=== PATIENT | female | born 1970 | race Caucasian/White ===

== ENCOUNTER → 2017-04-25 | Outpatient (CLI) | payer BC ==
[~2017-04-25] MED LIST: IBUP-1459 PO; PRENTAB26 PO
--- NOTE | 2017-04-26 13:52 | MAMMOGRAPHY REPORT ---
BILATERAL DIGITAL SCREENING MAMMOGRAM TOMOSYNTHESIS WITH CAD: 04/25/2017 CLINICAL HISTORY: Routine screening. Patient has no complaints. TECHNIQUE: Breast tomosynthesis in addition to standard 2D mammography was performed. Current study was also evaluated with a Computer Aided Detection (CAD) system. COMPARISON: Comparison is made to exams dated: 01/21/2013 mammogram, 08/07/2011 mammogram, 07/13/2010 m ammogram, and 09/26/2002 mammogram - [facility]. BREAST COMPOSITION: The tissue of both breasts is heterogeneously dense, which may obscure small mas ses. FINDINGS: No suspicious spiculated or irregular mass, architectural distortion or cluster of suspici ous microcalcifications is seen. There are multiple bilateral circumscribed subcentimeter masses sca ttered in the breasts, the circumscribed borders are best appreciated on the tomosynthesis images. T his is a typically benign mammographic pattern. IMPRESSION: ACR BI-RADS CATEGORY 1: NEGATIVE There is no mammographic evidence of malignancy. A 1 year screening mammogram is recommended. The pa tient will receive written notification of the results. Approximately 10% of breast cancers are not detected with mammography. A negative mammographic report should not delay biopsy if a clinically suggestive mass is present. Siobhan Guo M.D. ay/:04/25/2017 15:45:46 Customer Service Technician: Catrina SNYDER(Shara)(M), [facility] letter sent: Normal 1/2 BI-RADS Code: ACR BI-RADS Category 1: Negative
== END | disposition home or self-care (01) ==
LOC: C.MAMM 15:02
PROVIDERS: ATTEND Nurse Practitioner Family
DX: Z12.31 Encounter for screening mammogram for malignant neoplasm of breast (principal)

== ENCOUNTER 2017-05-10 23:12 | Emergency (ER) | payer BC ==
[~2017-05-10] VITALS: Ht 162.6 cm; Wt 77.9 kg
[2017-05-10 23:17] VITALS: TEMP 36.9; Ht 162.6 cm; Wt 77.9 kg
[2017-05-10] MEDS ORDERED: SODIUM CHLORIDE 0.9% 500ML 500 ML IV STA (23:27)
[2017-05-10] MEDS ORDERED: ONDANSETRON INJ 2 MG/ML 2 ML VIAL IV STA (23:27)
[2017-05-10] MEDS ORDERED: LIDOCAINE HCL 2% VISC SOLN 20 ML UDC PO STA (23:31)
[2017-05-10] MEDS ORDERED: ALUMINUM/MAGNESIUM SUSP 30 ML UDC PO STA (23:31)
[2017-05-10 23:53] LABS: BASO % 0.3 %; BASO ABS # 0.03 K/uL (0-0.2); COMPLETE YES; EOS % 2.7 %; HEMATOCRIT 37.6 % (37-47); IG% 0.1 %; LYMPH ABS # 3.66 K/uL (1.2-3.4); MEAN CELL VOLUME 84.1 fL (80-100); MEAN CORPUSCULAR HEMOGLOBIN 29.1 pg (25-34); MEAN CORPUSCULAR HGB CONC 34.6 g/dl (32-36); MEAN PLATELET VOLUME 9.7 fL (7.4-10.4); MONO % 6.6 %; NEUT % 52.3 %; PLATELET COUNT 289 K/uL (130-400); RED BLOOD COUNT 4.47 M/uL (4.2-5.4); WHITE BLOOD COUNT 9.63 K/uL (4.8-10.8)
[2017-05-10 23:55] LABS: POINT OF CARE TROPONIN I < 0.030 ng/ml (0-0.045)
[2017-05-11] MEDS ORDERED: LISI-725 PO (00:02)
[2017-05-11 00:12] LABS: PREG INTERNAL NEGATIVE QC NEG CLEAR BACKGROUND; PREG INTERNAL POSITIVE QC POS CONTROL LINE
[2017-05-11 00:16] LABS: ALT/SGPT 20 U/L (12-78); AST/SGOT 14 U/L (15-37); BLOOD UREA NITROGEN 26 mg/dl (7-18); BUN/CREATININE RATIO 34.8 (10-20); CALCIUM 9.2 mg/dl (8.5-10.1); CARBON DIOXIDE 31 mmol/L (21-32); CHLORIDE 101 mmol/L (98-107); CREATININE 0.74 mg/dl (0.60-1.20); GLUCOSE 111 mg/dl (70-99); POTASSIUM 3.4 mmol/L (3.5-5.1); SODIUM 139 mmol/L (136-145)
[2017-05-11 00:21] LABS: ALKALINE PHOSPHATASE 98 U/L (45-117)
[2017-05-11] MEDS ORDERED: OPTIRAY 320 IV PRN (01:15)
--- NOTE | 2017-05-11 04:20 | EMERGENCY ROOM VISIT NOTE ---
History First contact with patient: 23:19 Chief Complaint: CHEST PAIN Stated Complaint: CHEST PAIN, BACK PAIN, DIZZY Nursing Triage Summary: Pt complains of left sided chest pain that started at 1pm. +dizzy HX MVP History of Present Illness The patient is a 46 year old female who presents to the Emergency Room with complaints of left-sided chest pain that radiates to her back since 8 PM described as aching, ranging in severity 5 out of 10. Nothing makes it better or worse. Patient has traveled recently. No family history or personal history of heart disease or blood clots. She does not smoke. No control. Patient denies dyspnea, neck pain, jaw pain, arm pain, abdominal pain , nausea, vomiting, diarrhea, diaphoresis, leg pain or swelling. No prior heart testing. Patient denies diabetes, cholesterol. Review of Systems See HPI for pertinent positives & negatives. A total of 10 systems reviewed and were otherwise negative. Past Medical/Surgical History Hypertension, eye surgery, mitral valve prolapse Social History Smoking Status: Never Smoker Smokeless Tobacco Use: No Drug Use: none Marital Status: Housing Status: lives with family Current/Historical Medications Scheduled Lisinopril (Zestril), 20 MG PO DAILY Physical Exam Vital Signs Date Time Temp Pulse Resp B/P (MAP) Pulse Ox O2 Delivery O2 Flow Rate FiO2 05/11/17 03:57 80 124/84 05/11/17 03:09 70 05/11/17 01:56 124/84 98 Room Air 05/11/17 01:12 73 17 05/11/17 00:42 78 19 05/11/17 00:12 78 20 05/10/17 23:45 Room Air 05/10/17 23:42 77 18 05/10/17 23:32 70 05/10/17 23:17 36.9 81 16 143/97 98 Room Air Physical Exam VITALS: Vitals are noted on the nurse's note and reviewed by myself. Vital signs stable. GENERAL: Pleasant female, in no acute distress, nondiaphoretic, well-developed well-nourished. SKIN: The skin was without rashes, erythema, edema, or bruising. There is no tenting of the skin. Capillary reflex less than 2 seconds. HEAD: Normocephalic atraumatic. EARS: External auditory canals clear, tympanic membranes pearly beatty without erythema or effusion bilaterally. EYES: Pupils equal round and reactive to light and accommodation. Conjunctivae without injection, sclerae without icterus. Extraocular movements intact. NOSE: Patent, turbinates without inflammation or discharge. MOUTH: Mucous membranes moist. Pharynx without erythema or exudate. Uvula midline. Airway patent. Tongue does not deviate. NECK: Supple without nuchal rigidity. No lymphadenopathy. No thyromegaly. Cervical spine is nontender. No JVD. HEART: Regular rate and rhythm Chest nontender to palpation LUNGS: Clear to auscultation bilaterally without wheezes, rales or rhonchi. No dullness to percussion. No retractions or accessory muscle use. ABDOMEN: Positive bowel sounds x 4. Normal tympanic percussion. Soft, nontender, without masses or organomegaly. Wade sign negative. No guarding or rebound tenderness. MUSCULOSKELETAL: No muscle atrophy, erythema, or edema noted. NEURO: Patient was alert and oriented to person place and time. Normal sensation to light and sharp touch. No focal neurological deficits. Medical Decision & Procedures Laboratory Results 05/10/17 23:30 Red Blood Count 4.47, Mean Corpuscular Volume 84.1, Mean Corpuscular Hemoglobin 29.1, Mean Corpuscular Hemoglobin Concent 34.6, Mean Platelet Volume 9.7, Neutrophils (%) (Auto) 52.3, Lymphocytes (%) (Auto) 38.0, Monocytes (%) (Auto) 6.6, Eosinophils (%) (Auto) 2.7, Basophils (%) (Auto) 0.3, Neutrophils # (Auto) 5.03, Lymphocytes # (Auto) 3.66, Monocytes # (Auto) 0.64, Eosinophils # (Auto) 0.26, Basophils # (Auto) 0.03 05/10/17 23:30 Test 05/10/17 23:30 05/10/17 23:35 White Blood Count 9.63 K/uL (4.8-10.8) Red Blood Count 4.47 M/uL (4.2-5.4) Hemoglobin 13.0 g/dL (12.0-16.0) Hematocrit 37.6 % (37-47) Mean Corpuscular Volume 84.1 fL (80-100) Mean Corpuscular Hemoglobin 29.1 pg (25-34) Mean Corpuscular Hemoglobin Concent 34.6 g/dl (32-36) Platelet Count 289 K/uL (130-400) Mean Platelet Volume 9.7 fL (7.4-10.4) Neutrophils (%) (Auto) 52.3 % Lymphocytes (%) (Auto) 38.0 % Monocytes (%) (Auto) 6.6 % Eosinophils (%) (Auto) 2.7 % Basophils (%) (Auto) 0.3 % Neutrophils # (Auto) 5.03 K/uL (1.4-6.5) Lymphocytes # (Auto) 3.66 K/uL (1.2-3.4) Monocytes # (Auto) 0.64 K/uL (0.11-0.59) Eosinophils # (Auto) 0.26 K/uL (0-0.5) Basophils # (Auto) 0.03 K/uL (0-0.2) RDW Standard Deviation 39.8 fL (36.4-46.3) RDW Coefficient of Variation 13.2 % (11.5-14.5) Immature Granulocyte % (Auto) 0.1 % Immature Granulocyte # (Auto) 0.01 K/uL (0.00-0.02) Anion Gap 7.0 mmol/L (3-11) Est Creatinine Clear Calc Drug Dose 93.9 ml/min Estimated GFR () 111.0 Estimated GFR (Non- 95.8 BUN/Creatinine Ratio 34.8 (10-20) Calcium Level 9.2 mg/dl (8.5-10.1) Total Bilirubin 0.6 mg/dl (0.2-1) Direct Bilirubin 0.1 mg/dl (0-0.2) Aspartate Amino Transf (AST/SGOT) 14 U/L (15-37) Alanine Aminotransferase (ALT/SGPT) 20 U/L (12-78) Alkaline Phosphatase 98 U/L (45-117) Troponin I < 0.015 ng/ml (0-0.045) Total Protein 7.5 gm/dl (6.4-8.2) Albumin 3.9 gm/dl (3.4-5.0) Lipase 328 U/L (73-393) Human Chorionic Gonadotropin, Qual NEG (NEG) Bedside D-Dimer 311 ng/mlFEU (0-450) Bedside Troponin I < 0.030 ng/ml (0-0.045) Medications Administered Medications (Trade) Dose Ordered Sig/Naheed Route Start Time Stop Time Status Last Admin Dose Admin Sodium Chloride 500 ml @ 999 mls/hr Q31M STAT IV 05/10/17 23:27 05/10/17 23:57 DC 05/10/17 23:38 999 MLS/HR Ondansetron HCl (Zofran Inj) 4 mg NOW STAT IV 05/10/17 23:27 05/10/17 23:29 DC 05/10/17 23:39 4 MG Lidocaine HCl (Viscous Lidocaine 2% Soln) 10 ml NOW STAT PO 05/10/17 23:31 05/10/17 23:32 DC 05/10/17 23:39 10 ML Al Hydroxide/Mg Hydroxide (Maalox Susp) 30 ml NOW STAT PO 05/10/17 23:31 05/10/17 23:32 DC 05/10/17 23:40 30 ML ED Course Prior records/ancillary studies reviewed. Triage Nursing notes reviewed. Additional history obtained from family The patient's history was concerning for chest pain. Differential diagnosis: Etiologies such as cardiac ischemia, aortic dissection, pulmonary embolism, pneumonia, pneumothorax, musculoskeletal, infections, pericarditis, myocarditis , esophageal rupture, gastrointestinal, as well as others were entertained. Physical examination: As above. ER treatment provided: Patient was observed On reassessment the patient felt better. Diagnostic interpretation by me: The electrocardiogram was negative for pathologic change. Normal sinus, normal intervals, no acute ST-T wave changes, rate of 75. Impression normal sinus rhythm interpreted by myself The labs revealed negative troponin 2 was greater than 2 hours apart. Imaging studies: Chest CT negative for PE or acute findings per stat radiology Exam and history seem consistent with chest pain less likely to be cardiac in etiology. Patient had normal EKG. Patient did have chest pain that radiated to her back with the mitral valve prolapse. Imaging was ordered and there is no dissection or PE. No prior echo or stress test per patient. Patient had 2 troponins that were negative there greater than 2 hours apart. The second troponin was greater than 6 hours initial onset of symptoms. Initial onset of symptoms was at 10 PM. Her symptoms are not exertional. Patient was advised to follow-up family care for outpatient cardiac testing or here in the ER sooner for chest pain, difficulty breathing, worsening signs or symptoms or as needed. By the evaluation outlined above emergent etiologies such as cardiac ischemia, aortic dissection, pulmonary embolism, pneumonia, pneumothorax, infections, pericarditis, myocarditis, gastrointestinal, as well as others were deemed relatively unlikely. The pt informed about the findings as listed above. All questions were answered and pleased with the treatment. Return instructions were outlined and the patient was discharged in stable condition. Referral: The patient was referred back to primary care physician for follow-up in 2 to 3 days for a recheck of the current condition. Case reviewed by attending. Medical Decision As above Medication Reconcilliation Current Medication List: was personally reviewed by me Blood Pressure Screening Patient's blood pressure: Normal blood pressure Impression Primary Impression: Substernal precordial chest pain Departure Information Dispostion Home / Self-Care Condition GOOD Referrals Sylwia Rodriguez, C.R.N.P. (PCP) Forms Call Back Authorization, HOME CARE DOCUMENTATION FORM, IMPORTANT VISIT INFORMATION Patient Instructions My [facility] [employer] Additional Instructions Ibuprofen(Motrin, Advil) may be used for fever or pain. Use 600mg every six hours as needed. Take with food. Avoid using more than 2400mg in a 24 hour period. Do not use 2400mg per day for more than three consecutive days without physician direction. Prolonged inappropriate use can lead to stomach upset or ulcers. (AND/OR) Acetaminophen(Tylenol) may be used for fever or pain. Use 1000mg every six hours as needed. Avoid using more than 3000mg in a 24 hour period. Rest and drink plenty of fluids as tolerated. Continue current medications. Avoid strenuous activities and anything that worsens your pain. Resume normal activities once your symptoms resolve. Return to the ER immediately for worsening or persistent chest pain, abdominal pain, vomiting, fevers, chest pains, difficulty breathing, worsening of your condition, or as needed. Follow up with your primary physician in 2-3 days for a recheck of your current condition and for further cardiac testing.
[2017-05-11 04:38] VITALS: BP 137/97; PULSE 64; O2SAT 96
--- NOTE | 2017-05-11 06:42 | DIAGNOSTIC IMAGING REPORT ---
CHEST ONE VIEW PORTABLE HISTORY: 46 years-old Female CHEST PAIN acute atypical chest and back pain with dizziness COMPARISON: Chest CT 05/11/2017 TECHNIQUE: Portable upright AP view of the chest FINDINGS: Cardiomediastinal and hilar silhouettes are within normal limits. There is no pneumothorax, pleural effusion, focal airspace consolidation or overt pulmonary edema. The bones of the chest are grossly intact. There is gentle convex right curvature of the midthoracic spine. IMPRESSION: No acute cardiopulmonary process. The above report was generated using voice recognition software. It may contain grammatical, syntax or spelling errors. Electronically signed by: Ish Braden M.D. 05/11/2017 6:40 AM Dictated Date/Time: 05/11/2017 6:39 AM
--- NOTE | 2017-05-11 07:06 | DIAGNOSTIC IMAGING REPORT ---
(CHEST FOR PE) ANGIO WITH CT DOSE: 240.99 mGy.cm HISTORY: 46 years-old Female presents with acute chest and back pain. TECHNIQUE: Multiple CTA images of the chest were obtained after the intravenous administration of 93 ml Optiray 320. Coronal and sagittal MIPS were obtained from the axial data set and were submitted for review. A dose lowering technique was utilized adhering to the principles of ALARA. COMPARISON: Chest radiograph 05/10/2017. FINDINGS: CTA: There is adequate opacification of the pulmonary arteries to the level of the subsegmental branches without convincing evidence of acute pulmonary embolism. The thoracic aorta is normal in course and caliber without dissection or aneurysm. Heart size is normal without pericardial effusion. CT CHEST: Heterogeneous appearance of the thyroid without dominant thyroid nodule identified. No pathologically adenopathy by CT size criteria. There is no pneumothorax, pleural effusion or focal airspace consolidation. Mild dependent bibasilar atelectasis. The imaged upper abdominal structures are normal. The osseous structures appear intact. Mild dextroscoliosis of the thoracic spine, approximately 10 degrees. IMPRESSION: 1. No acute cardiopulmonary process, specifically no acute aortic pathology or evidence of pulmonary thromboembolic disease. 2. Mild heterogeneity of the thyroid without dominant nodule. 3. Mild dextroscoliosis of the thoracic spine. The above report was generated using voice recognition software. It may contain grammatical, syntax or spelling errors. Electronically signed by: Ish Braden M.D. 05/11/2017 7:04 AM Dictated Date/Time: 05/11/2017 7:00 AM
== END 2017-05-11 04:39 | disposition home or self-care (01) ==
LOC: C.EDB 23:13 → C.EDA 05-11 04:39
DX: R07.2 Precordial pain (principal); I10 Essential (primary) hypertension

== ENCOUNTER → 2017-05-15 | Outpatient (CLI) | payer BC ==
[~2017-05-15] MED LIST changes: -IBUP-1459 PO; +LISI-725 PO; -PRENTAB26 PO
== END | disposition home or self-care (01) ==
LOC: C.PAPS 09:15
PROVIDERS: ATTEND Obstetrics & Gynecology
DX: Z01.419 Encounter for gynecological examination (general) (routine) without abnormal findings (principal)

== ENCOUNTER → 2018-03-12 | Outpatient (CLI) | payer BC ==
--- NOTE | 2018-03-12 15:29 | DIAGNOSTIC IMAGING REPORT ---
ABDOMEN AND PELVIS CT WITHOUT CONTRAST CT DOSE: 417.91 mGy.cm HISTORY: Acute lower abdominal pain with history of prior colorectal surgery. History of colon cancer. POST OPERATIVE PAIN TECHNIQUE: Multiaxial CT images of the abdomen and pelvis were performed without contrast. A dose lowering technique was utilized adhering to the principles of ALARA. COMPARISON STUDY: CT abdomen and pelvis 02/05/2018. FINDINGS: Limited study without the use of contrast. Imaged lung bases appear clear. No pneumatosis or pneumoperitoneum. Imaged inferior cardiac chambers are unremarkable. Gallbladder is mildly contracted. Liver, spleen, pancreas and adrenal glands are unremarkable. Kidneys, ureters and bladder are unremarkable. Uterus appears to be surgically absent. Aorta and IVC appear unremarkable. No pathologically enlarged lymph nodes. Interval postoperative changes from partial colectomy with enterocolic anastomosis the level of the mid sigmoid colon. Stool-filled mildly distended loops of ileum is likely physiologic/compensatory. There is mesenteric stranding about the lower abdomen and pelvis the anastomotic site. No pneumoperitoneum to suggest anastomotic dehiscence. No bowel obstruction or definite focal bowel wall thickening. Scattered prominent lymph nodes of the right lower quadrant and central pelvic mesentery are seen measuring up to 11 x 7 mm. Multiple phleboliths of the pelvis are noted. Ill-defined straightening measuring 1.5 cm is noted within the left anterior abdominal wall, possibly related to recent medicinal injection. Bones appear intact. No suspicious lytic or blastic bony lesions. Probable bone islands about the pelvis redemonstrated. IMPRESSION: 1. Limited study without the use of contrast. There has been interval postoperative changes compatible with partial colectomy with enterocolic anastomosis. Anastomotic site appears intact without evidence of anastomotic dehiscence, bowel obstruction or definite focal bowel wall thickening. 2. Nonspecific mesenteric stranding about the lower abdomen and pelvis may be on a postsurgical basis. No drainable fluid collections identified. 3. Prominent mesenteric lymph nodes of the lower abdomen and pelvis are possibly reactive. 4. Prior hysterectomy. Electronically signed by: Ish Braden M.D. 03/12/2018 3:28 PM Dictated Date/Time: 03/12/2018 3:18 PM
== END | disposition home or self-care (01) ==
LOC: C.CTS 14:53
PROVIDERS: ATTEND Colon & Rectal Surgery
DX: Z90.49 Acquired absence of other specified parts of digestive tract (principal); Z98.890 Other specified postprocedural states; R59.0 Localized enlarged lymph nodes

== ENCOUNTER → 2018-03-13 | Outpatient (CLI) | payer BC ==
--- NOTE | 2018-03-13 09:01 | DIAGNOSTIC IMAGING REPORT ---
CT SCAN OF THE ABDOMEN AND PELVIS WITHOUT CONTRAST CLINICAL HISTORY: Postoperative abdominal pain. RECENT COLECTOMY. COMPARISON STUDY: A 2117 TECHNIQUE: CT scan of the abdomen and pelvis was performed from the lung bases to the proximal femurs. Images are reviewed in the axial, sagittal, and coronal planes. IV contrast was not administered for this examination. A dose lowering technique was utilized adhering to the principles of ALARA. The study was performed following administration of dilute oral contrast CT DOSE: 563.10 mGycm FINDINGS: Lower chest: The heart is normal in size and configuration, without pericardial effusion. The lung bases and pleural spaces are clear. Liver: The unenhanced liver is normal in size, contour, and attenuation. There is no intrahepatic biliary ductal dilatation. Gallbladder: Unremarkable. Spleen: Normal in size and attenuation. Pancreas: Unremarkable. Adrenal glands: Unremarkable. Kidneys: The unenhanced kidneys are normal in size without hydronephrosis. There is no contour deforming renal mass lesion. No renal calculi are identified. Bowel: There are postsurgical changes of a partial colectomy. There are no transition zones indicate bowel obstruction. Increased soft tissue density within the pelvis likely represents postsurgical edema. There are no fluid collections to indicate a drainable abscess. There are no extraluminal gas collections. Peritoneum: There is no intraperitoneal free air or abdominal ascites. Vasculature: The abdominal aorta is normal in course and caliber. Adenopathy: Mildly prominent mesenteric lymph nodes, remain unchanged the prior study and are likely reactive. Pelvic viscera: The uterus appears surgically absent. There is a 15 mm focus within the subcutaneous fat of the left anterior abdominal wall unchanged the prior study. This likely relates to prior injection site. There are gas bubbles within the right anterior abdominal wall, also likely secondary to injection sites. Skeletal structures: No destructive osseous lesions are seen. IMPRESSION: 1. Postsurgical changes of a partial colectomy and enterocolonic anastomosis. 2. No evidence of bowel obstruction. No evidence of free air 3. Postsurgical edema within the pelvis. No CT evidence of anastomotic leak. No evidence of abscess. 4. Surgically absent uterus Electronically signed by: aKiden Shi M.D. 03/13/2018 8:59 AM Dictated Date/Time: 03/13/2018 8:51 AM
== END | disposition home or self-care (01) ==
LOC: C.CTS 08:09
PROVIDERS: ATTEND Colon & Rectal Surgery
DX: G89.18 Other acute postprocedural pain (principal)